=== PATIENT | female | born 1955 | race Hispanic/Latino ===

== ENCOUNTER 2019-01-05 11:39 | Emergency (ER) | payer OTHER | END 2019-01-05 12:46 | disposition home or self-care (01) | LOC: EDH 11:39 | DX: H53.2 Diplopia (principal); H53.8 Other visual disturbances; E11.9 Type 2 diabetes mellitus without complications; E78.5 Hyperlipidemia, unspecified; Z90.49 Acquired absence of other specified parts of digestive tract; Z90.710 Acquired absence of both cervix and uterus | CPT/HCPCS: 70450 ==